=== PATIENT | female | born 1980 | race Caucasian/White ===

== ENCOUNTER 2017-09-20 18:20 | Emergency (ER) | payer MEDICAID ==
[~2017-09-20] VITALS: Ht 172.7 cm; Wt 127.5 kg
[2017-09-20 18:29] VITALS: BP 150/73
--- NOTE | 2017-09-20 18:33 | NUR ---
Patient to bed 03.
--- NOTE | 2017-09-20 18:57 | NUR ---
36/F c/o vaginal bleeding starting today. Pt reports being approximately 8 weeks . A0. Pt states she started bleeding this morning. Pt states "It's pink when I wipe." AOX4, french speaking. VSS.
--- NOTE | 2017-09-20 19:20 | NUR ---
Pt report given to Sumi MICHELE. Transfer of care at this time.
[2017-09-20 19:52] LABS: BASOPHILS # (AUTO) 0.6 K/uL (0.00-0.22); EOSINOPHILS # (AUTO) 0.1 K/uL (0-0.4); HEMATOCRIT 40.2 % (36-48); HEMOGLOBIN 13.3 g/dL (12.0-16.0); LYMPHOCYTES # (AUTO) 1.7 K/uL (2.5-16.5); MEAN CORPUSCULAR HEMOGLOBIN 29 pg (27-31); MEAN CORPUSCULAR HGB CONC 33 g/dL (33-37); MEAN CORPUSCULAR VOLUME 89 fL (80-94); MONOCYTES # (AUTO) 0.5 K/uL (0.8-1.0); NEUTROPHILS # (AUTO) 6.6 K/uL (1.8-7.7); PLATELET COUNT (AUTO) 204 K/uL (140-450); RED BLOOD CELL COUNT(AUTO) 4.53 MIL/uL (4.20-5.40); RED CELL DISTRIBUTION WIDTH 13.4 % (11.6-13.7); WHITE BLOOD COUNT (AUTO) 9.5 K/uL (4.8-10.8)
--- NOTE | 2017-09-20 21:00 | NUR ---
VSS, PT STABLE, ALL NEEDS MET AT THIS TIME
--- NOTE | 2017-09-20 22:20 | NUR ---
Patient discharged with v/s stable. Written and verbal after care instructions given and explained. Patient verbalized understanding. Ambulatory with steady gait. All questions addressed prior to discharge. Advised to follow up with PMD.
[2017-09-20 22:54] VITALS: BP 116/66
== END 2017-09-20 22:20 | disposition home or self-care (01) ==
LOC: MED 18:20
DX: O20.0 Threatened abortion (principal); Z3A.08 8 weeks gestation of pregnancy
CPT/HCPCS: 36415; 76817; 84702; 85025; 86900; 86901; 99285; Q0092

== ENCOUNTER 2017-09-22 10:55 | Emergency (ER) | payer MEDICAID ==
[~2017-09-22] VITALS: Ht 175.3 cm; Wt 126.6 kg
[2017-09-22 11:20] VITALS: BP 149/89
--- NOTE | 2017-09-22 11:22 | NUR ---
Patient ambulated to bed 01.
--- NOTE | 2017-09-22 11:32 | NUR ---
36/F PT PRESENTS TO ER FOR EVALUATION OF VAGINAL BLEEDING DURING . PT STATES SHE WAS SEEN IN ER 2 DAYS AGO FOR SAME S/SX, BUT BLEEDING HAS GOTTEN MORE HEAVY AND SHE PASSED A CLOT THIS AM. [id number], BREATHING EVEN AND UNLABORED.ERMD NOTIFIED OF PATIENT STATUS.
--- NOTE | 2017-09-22 12:51 | NUR ---
PATIENT RESTING; VSS; PATIENT POSITIONED FOR COMFORT; HOB ELEVATED; BEDRAILS UP X2; BED DOWN. ER MD MADE AWARE OF PT STATUS.
--- NOTE | 2017-09-22 13:00 | NUR ---
Patient being evaluated by physician at bedside.
[2017-09-22 13:36] VITALS: BP 127/72
== END 2017-09-22 13:36 | disposition home or self-care (01) ==
LOC: MED 10:55
DX: O03.9 Complete or unspecified spontaneous abortion without complication (principal)
CPT/HCPCS: 36415; 84702; 99283

== ENCOUNTER 2017-09-25 08:06 | Emergency (ER) | payer MEDICAID ==
[~2017-09-25] VITALS: Ht 175.3 cm; Wt 127.0 kg
[2017-09-25 08:13] VITALS: BP 145/78
[2017-09-25] MEDS ORDERED: KETOROLAC 60 MG/2 ML VIAL IM ONE (09:05)
[2017-09-25 09:16] LABS: BASOPHILS # (AUTO) 0.2 K/uL (0.00-0.22); BASOPHILS % (AUTO) 2.3 % (0.0-2.0); EOSINOPHILS % (AUTO) 0.6 % (0.0-4.0); HEMATOCRIT 38.6 % (36-48); HEMOGLOBIN 12.8 g/dL (12.0-16.0); LYMPHOCYTES # (AUTO) 1.9 K/uL (2.5-16.5); LYMPHOCYTES % (AUTO) 24.6 % (20.5-51.1); MEAN CORPUSCULAR HEMOGLOBIN 30 pg (27-31); MEAN CORPUSCULAR HGB CONC 33 g/dL (33-37); MEAN CORPUSCULAR VOLUME 90 fL (80-94); MONOCYTES # (AUTO) 0.4 K/uL (0.8-1.0); MONOCYTES % (AUTO) 5.3 % (1.7-9.3); NEUTROPHILS # (AUTO) 5.1 K/uL (1.8-7.7); NEUTROPHILS % (AUTO) 67.2 % (42.2-75.2); PLATELET COUNT (AUTO) 176 K/uL (140-450); RED CELL DISTRIBUTION WIDTH 13.4 % (11.6-13.7); WHITE BLOOD COUNT (AUTO) 7.6 K/uL (4.8-10.8)
[2017-09-25 09:18] LABS: APPEARANCE,URINE CLEAR (CLEAR); BILIRUBIN,URINE NEGATIVE (NEGATIVE); BLOOD, URINE 3+ (NEGATIVE); COLOR,URINE YELLOW (YELLOW); LEUKOCYTE ESTERASE ,URINE NEGATIVE (NEGATIVE); NITRITE, URINE NEGATIVE (NEGATIVE); UGLUCOSE NEGATIVE (NEGATIVE)
[2017-09-25 09:40] LABS: RBC,URINE 0-5 (RARE) /HPF (0-5); WBC,URINE 0-5 (RARE) /HPF (0-5)
[2017-09-25 10:26] VITALS: BP 134/80
== END 2017-09-25 10:25 | disposition home or self-care (01) ==
LOC: MED 08:06
DX: O03.9 Complete or unspecified spontaneous abortion without complication (principal)
CPT/HCPCS: 36415; 76817; 81001; 81025; 84702; 85025; 96372; 99285; J1885; Q0092